=== PATIENT | female | born 1945 | race African-American/Black ===

== ENCOUNTER 2019-07-06 13:47 | Inpatient (IN) | payer OTHER ==
[~2019-07-06] VITALS: Ht 167.6 cm; Wt 87.5 kg
[2019-07-06 15:10] LABS: BASOPHILS % 1.3 % (0.0-2.0); EOSINOPHILS % 4.7 % (0.0-5.0); HEMATOCRIT. 46.6 % (36.0-48.0); HEMOGLOBIN. 15.6 g/dL (12.0-16.0); LYMPHOCYTES % 26.3 % (20.0-50.0); MEAN CORPUSCULAR VOLUME 83.6 fL (81.0-99.0); MEAN PLATELET VOLUME 8.7 fl (7.4-10.4); MONOCYTES % 8.5 % (2.0-8.0); NEUTROPHILS % 59.2 % (40.0-76.0); PLATELET 205 x1000/uL (130-400); RED BLOOD CELL COUNT 5.58 mill/uL (4.2-5.4)
[2019-07-06 15:16] LABS: CHLORIDE 105 mEq/L (98-107)
[2019-07-06 16:18] LABS: CLARITY URINE CLEAR (CLEAR); COLOR URINE YELLOW (YELLOW); KETONES URINE NEGATIVE (NEGATIVE); LEUKOCYTE ESTERASE URINE NEGATIVE (NEGATIVE); NITRITE URINE NEGATIVE (NEGATIVE); OCCULT BLOOD URINE NEGATIVE (NEGATIVE); PH URINE 6.5 (4.5-8.0); PROTEIN URINE TRACE (NEGATIVE); SPECIFIC GRAVITY URINE 1.009 (1.005-1.030); UROBILINOGEN URINE 0.2 E.U./dL (0.2-1.0)
[2019-07-06] MEDS ORDERED: ASPIRIN 81MG TABLET PO ONE (17:00)
[2019-07-06] MEDS ORDERED: DOCUSATE SODIUM 100MG CAPSULE PO PRN (21:00)
[2019-07-06] MEDS ORDERED: MAGNESIUM/ALUMINUM HYDROXIDE/SIMETHICONE 30ML UDC PO PRN (21:00)
[2019-07-06] MEDS ORDERED: ONDANSETRON HCL 4MG/2ML INJ IV PRN (21:00)
[2019-07-06] MEDS ORDERED: CLONIDINE 0.1MG TABLET PO PRN (21:00)
[2019-07-06] MEDS ORDERED: ENOXAPARIN 40MG/0.4ML SYR SUBCUT SCH (21:00)
[2019-07-06] MEDS ORDERED: GUAIFENESIN 200MG/10ML SUGAR FREE UDC PO PRN (21:00)
[2019-07-06] MEDS ORDERED: ACETAMINOPHEN 325MG TABLET PO PRN (21:00)
[2019-07-06 22:50] VITALS: BP 142/69
[2019-07-07] VITALS (12 sets, daily range): BP systolic 116–180; BP diastolic 52–149
[2019-07-07] MEDS ORDERED: ENOXAPARIN 40MG/0.4ML SYR SUBCUT SCH (01:00)
[2019-07-07] MEDS ORDERED: ASPIRIN 81MG EC TABLET PO SCH (09:00)
[2019-07-07] MEDS: ASPIRIN 81MG EC TABLET PO SCH ×3 (09:33→17:00)
[2019-07-07] MEDS: ENOXAPARIN 40MG/0.4ML SYR SUBCUT SCH (09:34)
[2019-07-07] MEDS ORDERED: AMLO2.5T45 MT (10:59)
[2019-07-07] MEDS ORDERED: NITROGLYCERIN 0.4MG TABLET SL SL PRN (11:00)
[2019-07-07] MEDS ORDERED: ALLO100T PO (11:19)
[2019-07-07] MEDS ORDERED: OMEP20CA14 MT (11:19)
[2019-07-07] MEDS ORDERED: SIMV-46 MT (11:19)
[2019-07-07] MEDS ORDERED: CALC-1042 PO (11:19)
[2019-07-07] MEDS ORDERED: ATEN50TA PO (11:19)
[2019-07-07] MEDS ORDERED: ASPI-1158 PO (11:19)
[2019-07-07] MEDS: AMLODIPINE 2.5MG TABLET PO SCH (13:24)
[2019-07-07] MEDS: ATENOLOL 50 MG TABLET PO SCH (13:24)
[2019-07-07] MEDS: NITROGLYCERIN OINT 1GM/INCH UDPKT TD SCH (15:22)
[2019-07-07] MEDS: ATORVASTATIN CALCIUM 40MG TABLET PO SCH (22:10)
[2019-07-08] VITALS (12 sets, daily range): BP systolic 112–154; BP diastolic 51–84
[2019-07-08] MEDS: NITROGLYCERIN OINT 1GM/INCH UDPKT TD SCH ×4 (00:02→23:45)
[2019-07-08 07:06] LABS: BASOPHILS % 0.9 % (0.0-2.0); EOSINOPHILS % 7.2 % (0.0-5.0); HEMATOCRIT. 42.5 % (36.0-48.0); HEMOGLOBIN. 14.2 g/dL (12.0-16.0); LYMPHOCYTES % 25.6 % (20.0-50.0); MEAN CORPUSCULAR HEMOGLOBIN 28.2 pg (28.0-32.0); MEAN CORPUSCULAR VOLUME 84.5 fL (81.0-99.0); MEAN PLATELET VOLUME 8.8 fl (7.4-10.4); MONOCYTES % 9.8 % (2.0-8.0); NEUTROPHILS % 56.5 % (40.0-76.0); PLATELET 189 x1000/uL (130-400); RED BLOOD CELL COUNT 5.04 mill/uL (4.2-5.4); RED CELL DISTRIBUTION WIDTH 13.5 % (11.6-14.6)
[2019-07-08] MEDS ORDERED: IOHEXOL-300 100 ML BOTTLE ONE (08:03)
[2019-07-08] MEDS: ATENOLOL 50 MG TABLET PO SCH (08:06)
[2019-07-08] MEDS: ASPIRIN 81MG EC TABLET PO SCH (08:06)
[2019-07-08] MEDS: AMLODIPINE 2.5MG TABLET PO SCH (08:06)
[2019-07-08 08:10] LABS: VITAMIN B12 SERUM 584 pg/mL (211-911)
[2019-07-08] MEDS: ENOXAPARIN 40MG/0.4ML SYR SUBCUT SCH (09:00)
[2019-07-08] MEDS ORDERED: MIDAZOLAM HCL 2 MG/2 ML VIAL ONE (10:25)
[2019-07-08] MEDS ORDERED: FENTANYL CITRATE/PF 50MCG/ML 2ML VIAL ONE (10:26)
[2019-07-08] MEDS ORDERED: LIDOCAINE HCL 1% 20ML VIAL (Pyxis) INJ ONE (10:30)
[2019-07-08] MEDS ORDERED: ATROPINE SULFATE 1MG/10ML SYR IV PRN (11:30)
[2019-07-08] MEDS ORDERED: ACETAMINOPHEN 325MG TABLET PO PRN (11:30)
[2019-07-08] MEDS ORDERED: ONDANSETRON HCL 4MG/2ML INJ IV PRN (11:30)
[2019-07-08] MEDS: ATORVASTATIN CALCIUM 40MG TABLET PO SCH (21:24)
[2019-07-09] VITALS (7 sets, daily range): BP systolic 107–135; BP diastolic 37–75
[2019-07-09] MEDS: NITROGLYCERIN OINT 1GM/INCH UDPKT TD SCH (06:45)
[2019-07-09 07:00] LABS: BASOPHILS % 0.4 % (0.0-2.0); EOSINOPHILS % 2.7 % (0.0-5.0); HEMATOCRIT. 40.3 % (36.0-48.0); HEMOGLOBIN. 13.8 g/dL (12.0-16.0); LYMPHOCYTES % 15.2 % (20.0-50.0); MEAN CORPUSCULAR HEMOGLOBIN 28.9 pg (28.0-32.0); MEAN CORPUSCULAR VOLUME 84.5 fL (81.0-99.0); MEAN PLATELET VOLUME 8.7 fl (7.4-10.4); MONOCYTES % 7.9 % (2.0-8.0); NEUTROPHILS % 73.8 % (40.0-76.0); PLATELET 177 x1000/uL (130-400); RED BLOOD CELL COUNT 4.77 mill/uL (4.2-5.4)
[2019-07-09] MEDS: ENOXAPARIN 40MG/0.4ML SYR SUBCUT SCH (08:26)
[2019-07-09] MEDS: AMLODIPINE 2.5MG TABLET PO SCH (08:28)
[2019-07-09] MEDS: ATENOLOL 50 MG TABLET PO SCH (08:28)
[2019-07-09] MEDS ORDERED: ASPIRIN 325MG TABLET PO SCH (09:00)
== END 2019-07-09 11:03 | disposition home or self-care (01) | DRG 287 ==
LOC: ER 13:47 → 3WST 19:03 → EDBEDREQ 19:10 → ENRESERV 20:30 → ER 22:00
PROVIDERS: ADMIT Hospitalist; ATTEND Hospitalist
PROC: B2111ZZ Fluoroscopy of Multiple Coronary Arteries using Low Osmolar Contrast (ICD-10-PCS; principal; 2019-07-08)
PROC: B2151ZZ Fluoroscopy of Left Heart using Low Osmolar Contrast (ICD-10-PCS; 2019-07-08)
PROC: 4A023N8 Measurement of Cardiac Sampling and Pressure, Bilateral, Percutaneous Approach (ICD-10-PCS; 2019-07-08)
DX: T82.855A Stenosis of coronary artery stent, initial encounter (principal); I25.10 Atherosclerotic heart disease of native coronary artery without angina pectoris; I11.9 Hypertensive heart disease without heart failure; E78.00 Pure hypercholesterolemia, unspecified; E11.9 Type 2 diabetes mellitus without complications; M10.9 Gout, unspecified; E78.5 Hyperlipidemia, unspecified; K21.9 Gastro-esophageal reflux disease without esophagitis; K44.9 Diaphragmatic hernia without obstruction or gangrene; Y83.1 Surgical operation with implant of artificial internal device as the cause of abnormal reaction of the patient, or of later complication, without mention of misadventure at the time of the procedure; E66.9 Obesity, unspecified; Z87.891 Personal history of nicotine dependence; Z79.82 Long term (current) use of aspirin; Z79.899 Other long term (current) drug therapy; Z95.5 Presence of coronary angioplasty implant and graft; Z86.73 Personal history of transient ischemic attack (TIA), and cerebral infarction without residual deficits; Z68.31 Body mass index [BMI] 31.0-31.9, adult; Y92.89 Other specified places as the place of occurrence of the external cause
CPT/HCPCS: 36415; 70551; 71045; 80048; 80053; 80061; 81003; 82607; 83036; 83540; 83550; 83735; 83880; 84484; 85025; 93005; 93306; 93458; 93970; 97162; 99285; C1769; C1887; C1893; J1644; J1650; J2250; J3010; J3490; Q9967

== ENCOUNTER 2022-03-10 02:30 | Inpatient (IN) | payer OTHER ==
[~2022-03-10] VITALS: Ht 152.4 cm; Wt 83.0 kg
[~2022-03-10 02:30] MED LIST: ALLO100T PO; AMLO2.5T45 MT; ASPI-1406 PO; ATEN50TA PO; CALC-1042 PO; OMEP20CA14 MT; SIMV-46 MT
[2022-03-10 05:43] LABS: CHLORIDE 101 mEq/L (98-107)
[2022-03-10 05:45] LABS: BASOPHILS % 0.3 % (0.0-2.0); EOSINOPHILS % 1.1 % (0.0-5.0); HEMATOCRIT. 39.3 % (36.0-48.0); HEMOGLOBIN. 13.3 g/dL (12.0-16.0); LYMPHOCYTES % 11.2 % (20.0-50.0); MEAN CORPUSCULAR HEMOGLOBIN 28.6 pg (28.0-32.0); MEAN CORPUSCULAR VOLUME 84.5 fL (81.0-99.0); MEAN PLATELET VOLUME 8.1 fl (7.4-10.4); MONOCYTES % 8.3 % (2.0-8.0); NEUTROPHILS % 79.1 % (40.0-76.0); PLATELET 217 x1000/uL (130-400); RED BLOOD CELL COUNT 4.65 mill/uL (4.2-5.4); RED CELL DISTRIBUTION WIDTH 14.6 % (11.6-14.6)
[2022-03-10 05:47] LABS: PROTHROMBIN TIME 10.9 sec (9.6-11.0)
[2022-03-10 05:55] LABS: ETHANOL BLOOD < 10 mg/dL
[2022-03-10] MEDS ORDERED: ONDANSETRON HCL 4MG/2ML INJ IV ONE (06:45)
[2022-03-10] MEDS ORDERED: MORPHINE SULFATE 4 MG/ML CPJ (NOT FOR IM USE) IV ONE (06:45)
[2022-03-10] MEDS ORDERED: MAGNESIUM/ALUMINUM HYDROXIDE/SIMETHICONE 30ML UDC PO ONE (06:45)
[2022-03-10] MEDS ORDERED: MAGNESIUM/ALUMINUM HYDROXIDE/SIMETHICONE 30ML UDC PO NR (08:30)
[2022-03-10] MEDS ORDERED: MORPHINE SULFATE 4 MG/ML CPJ (NOT FOR IM USE) IV NR (08:30)
[2022-03-10] MEDS ORDERED: ONDANSETRON HCL 4MG/2ML INJ IV NR (08:30)
[2022-03-10 08:57] LABS: CLARITY URINE CLEAR (CLEAR); COLOR URINE DARK YELLOW (YELLOW); KETONES URINE 1+ (NEGATIVE); LEUKOCYTE ESTERASE URINE TRACE (NEGATIVE); NITRITE URINE NEGATIVE (NEGATIVE); OCCULT BLOOD URINE NEGATIVE (NEGATIVE); PROTEIN URINE 1+ (NEGATIVE); SPECIFIC GRAVITY URINE 1.027 (1.005-1.030)
[2022-03-10 09:18] LABS: *AMPHETAMINES SCREEN URINE NEGATIVE (NEGATIVE); *BARBITURATES SCREEN URINE NEGATIVE (NEGATIVE); *BENZODIAZEPINES SCREEN URINE NEGATIVE (NEGATIVE); *COCAINE SCREEN URINE NEGATIVE (NEGATIVE); CANNABINOID URINE SCREEN NEGATIVE (NEGATIVE); METHADONE URINE SCREEN NEGATIVE (NEGATIVE); OPIATES URINE SCREEN NEGATIVE (NEGATIVE); PHENCYCLIDINE URINE SCREEN NEGATIVE (NEGATIVE)
[2022-03-10] MEDS ORDERED: ACETAMINOPHEN 325MG TABLET PO PRN (13:45)
[2022-03-10] MEDS: DOCUSATE SODIUM 250MG CAPSULE PO SCH (13:45)
[2022-03-10] MEDS ORDERED: ONDANSETRON HCL 4MG/2ML INJ IV PRN (13:45)
[2022-03-10 19:50] VITALS: BP 125/64
[2022-03-10] MEDS: FAMOTIDINE 20MG TABLET PO SCH (21:23)
[2022-03-11] VITALS: BP 129/66
[2022-03-11 04:00] VITALS: BP 113/69
[2022-03-11] MEDS: DEXT 5%/0.45% NACL 1000ML 1,000 ML IV SCH ×2 (06:08→15:40)
[2022-03-11 06:51] LABS: BASOPHILS % 0.2 % (0.0-2.0); EOSINOPHILS % 0.7 % (0.0-5.0); HEMATOCRIT. 37.4 % (36.0-48.0); HEMOGLOBIN. 12.7 g/dL (12.0-16.0); LYMPHOCYTES % 7.7 % (20.0-50.0); MEAN CORPUSCULAR HEMOGLOBIN 28.5 pg (28.0-32.0); MEAN CORPUSCULAR VOLUME 83.7 fL (81.0-99.0); MEAN PLATELET VOLUME 8.2 fl (7.4-10.4); MONOCYTES % 7.8 % (2.0-8.0); NEUTROPHILS % 83.6 % (40.0-76.0); PLATELET 225 x1000/uL (130-400); RED BLOOD CELL COUNT 4.46 mill/uL (4.2-5.4); RED CELL DISTRIBUTION WIDTH 14.5 % (11.6-14.6)
[2022-03-11] MEDS ORDERED: LEVOFLOXACIN 500MG PREMIX 100 ML IV SCH (07:00)
[2022-03-11 07:50] LABS: CHLORIDE 104 mEq/L (98-107)
[2022-03-11 08:00] VITALS: BP 105/53
[2022-03-11] MEDS: ATENOLOL 50 MG TABLET PO SCH (09:00)
[2022-03-11] MEDS: AMLODIPINE 5MG TABLET PO SCH (09:00)
[2022-03-11] MEDS: ASPIRIN 81MG EC TABLET PO SCH (09:25)
[2022-03-11] MEDS: DOCUSATE SODIUM 250MG CAPSULE PO SCH (09:25)
[2022-03-11] MEDS: ALLOPURINOL 100 MG TABLET PO SCH ×2 (09:26→17:02)
[2022-03-11 12:00] VITALS: BP 111/55
[2022-03-11 16:00] VITALS: BP 122/73
[2022-03-11 20:00] VITALS: BP 125/62
[2022-03-11] MEDS: FAMOTIDINE 20MG TABLET PO SCH (20:40)
[2022-03-12] VITALS: BP 127/55
[2022-03-12] MEDS: DEXT 5%/0.45% NACL 1000ML 1,000 ML IV SCH ×2 (02:23→11:42)
[2022-03-12 04:00] VITALS: BP 128/60
[2022-03-12] MEDS ORDERED: LEVOFLOXACIN 250MG PREMIX 50 ML IV SCH (06:00)
[2022-03-12 06:20] LABS: BASOPHILS % 0.4 % (0.0-2.0); EOSINOPHILS % 4.5 % (0.0-5.0); HEMATOCRIT. 35.4 % (36.0-48.0); HEMOGLOBIN. 12.1 g/dL (12.0-16.0); LYMPHOCYTES % 15.7 % (20.0-50.0); MEAN CORPUSCULAR HEMOGLOBIN 28.5 pg (28.0-32.0); MEAN CORPUSCULAR VOLUME 83.6 fL (81.0-99.0); MEAN PLATELET VOLUME 8.4 fl (7.4-10.4); MONOCYTES % 9.9 % (2.0-8.0); NEUTROPHILS % 69.5 % (40.0-76.0); PLATELET 238 x1000/uL (130-400); RED BLOOD CELL COUNT 4.24 mill/uL (4.2-5.4); RED CELL DISTRIBUTION WIDTH 14.3 % (11.6-14.6)
[2022-03-12 06:55] LABS: CHLORIDE 103 mEq/L (98-107)
[2022-03-12 08:00] VITALS: BP_SYST 127; BP_SYST 131; BP_DIAS 55; BP_DIAS 59
[2022-03-12 08:05] VITALS: BP 131/59
[2022-03-12] MEDS: ASPIRIN 81MG EC TABLET PO SCH (09:21)
[2022-03-12] MEDS: DOCUSATE SODIUM 250MG CAPSULE PO SCH (09:21)
[2022-03-12] MEDS: AMLODIPINE 5MG TABLET PO SCH (09:22)
[2022-03-12] MEDS: ATENOLOL 50 MG TABLET PO SCH (09:22)
[2022-03-12] MEDS: ALLOPURINOL 100 MG TABLET PO SCH (09:22)
[2022-03-12 12:00] VITALS: BP 131/60
[2022-03-12 14:23] VITALS: BP 131/60
== END 2022-03-12 15:15 | disposition home or self-care (01) | DRG 444 ==
LOC: ER 02:30 → 8WST 10:20
PROVIDERS: ADMIT Internal Medicine; ATTEND Internal Medicine
DX: K81.0 Acute cholecystitis (principal); E43 Unspecified severe protein-calorie malnutrition; E87.1 Hypo-osmolality and hyponatremia; I11.9 Hypertensive heart disease without heart failure; I25.10 Atherosclerotic heart disease of native coronary artery without angina pectoris; K59.00 Constipation, unspecified; E78.00 Pure hypercholesterolemia, unspecified; R74.01 Elevation of levels of liver transaminase levels; K21.9 Gastro-esophageal reflux disease without esophagitis; Z88.8 Allergy status to other drugs, medicaments and biological substances; Z79.899 Other long term (current) drug therapy; Z68.35 Body mass index [BMI] 35.0-35.9, adult; Z95.5 Presence of coronary angioplasty implant and graft
CPT/HCPCS: 36415; 74018; 74181; 76705; 78227; 80053; 80076; 80305; 80320; 81003; 83605; 84484; 85025; 87426; 93005; 99285; A9537; C1893; C9803; J1956; J2270; J2405; G0480

== ENCOUNTER 2024-05-01 11:11 | Emergency (ER) | payer OTHER ==
[~2024-05-01] VITALS: Ht 154.9 cm; Wt 79.3 kg
[~2024-05-01 11:11] MED LIST changes: +METR-167 MT; +SULF1TAB48 MT
[2024-05-01 11:24] VITALS: O2SAT 95
[2024-05-01 12:09] LABS: BASOPHILS % 0.5 % (0.0-2.0); EOSINOPHILS % 2.5 % (0.0-5.0); HEMATOCRIT. 36.1 % (36.0-48.0); HEMOGLOBIN. 11.9 g/dL (12.0-16.0); LYMPHOCYTES % 13.3 % (20.0-50.0); MEAN CORPUSCULAR HEMOGLOBIN 28.2 pg (28.0-32.0); MEAN CORPUSCULAR VOLUME 85.4 fL (81.0-99.0); MONOCYTES % 5.7 % (2.0-8.0); PLATELET 191 x1000/uL (130-400); RED BLOOD CELL COUNT 4.22 mill/uL (4.2-5.4); RED CELL DISTRIBUTION WIDTH 15.9 % (11.6-14.6); WHITE BLOOD COUNT 5.7 x1000/uL (4.5-11.0)
[2024-05-01 12:16] LABS: CHLORIDE 105 mEq/L (98-107); POTASSIUM 4.3 mEq/L (3.5-5.1); SODIUM 141 mEq/L (136-145)
[2024-05-01 12:17] LABS: CALCIUM 9.7 mg/dL (8.7-10.4); CARBON DIOXIDE 27 mEq/L (21-32)
[2024-05-01 12:22] LABS: CREATININE 1.2 mg/dL (0.6-1.0); GLUCOSE 188 mg/dL (70-105); UREA NITROGEN BLOOD 18 mg/dL (9-23)
[2024-05-01 12:38] LABS: TROPONIN I HIGH SENSITIVITY 51 ng/L (3.0-34)
[2024-05-01 14:17] LABS: TROPONIN I HIGH SENSITIVITY 54 ng/L (3.0-34)
[2024-05-01 14:26] VITALS: BP 140/85; PULSE 74; RESP 16; TEMP 36.8; O2SAT 95
== END 2024-05-01 14:33 | disposition home or self-care (01) ==
LOC: ER 11:45
DX: R06.02 Shortness of breath (principal); I25.2 Old myocardial infarction; I10 Essential (primary) hypertension; E78.00 Pure hypercholesterolemia, unspecified; E11.9 Type 2 diabetes mellitus without complications; Z88.5 Allergy status to narcotic agent; Z79.82 Long term (current) use of aspirin; Z79.899 Other long term (current) drug therapy; Z98.890 Other specified postprocedural states
CPT/HCPCS: 36415; 71045; 80048; 82962; 84484; 85025; 93005; 99285